=== PATIENT | female | born 1980 | race Caucasian/White ===

== ENCOUNTER 2024-04-24 14:11 | Emergency (ER) | payer MEDICAID, OTHER ==
[~2024-04-24] VITALS: Ht 162.6 cm; Wt 78.9 kg
[2024-04-24] MEDS ORDERED: TIRZEPATIDE (14:30)
[2024-04-24 14:44] LABS: BASOPHILS % (AUTO) 0.6 % (0.0-2.0); DIFFERENTIAL COMMENT 1; EOSINOPHILS % (AUTO) 0.3 % (0.0-7.0); HEMATOCRIT 39.7 % (31.2-41.9); HEMOGLOBIN 13.7 g/dL (10.9-14.3); LYMPHOCYTES % (AUTO) 17.8 % (20.5-51.5); MEAN CORPUSCULAR HEMOGLOBIN 30.2 uug (24.7-32.8); MEAN CORPUSCULAR HGB CONC 35 g/dL (32.3-35.6); MEAN CORPUSCULAR VOLUME 87.6 fL (75.5-95.3); MONOCYTES # (AUTO) 0.2 K/uL (0.1-1.30); MONOCYTES % (AUTO) 3.3 % (0.0-11.0); NEUTROPHILS # (AUTO) 4.2 K/uL (1.8-8.9); PLATELET COUNT (AUTO) 228 K/uL (179-408); RED BLOOD CELL COUNT(AUTO) 4.53 MIL/uL (3.63-4.92); RED CELL DISTRIBUTION WIDTH 12.6 % (12.3-17.7); WHITE BLOOD COUNT (AUTO) 5.4 K/uL (3.8-11.8)
[2024-04-24 14:45] LABS: *BILIRUBIN,URIN NEGATIVE (NEGATIVE); *BLOOD, URINE NEGATIVE (NEGATIVE); *CLARITY,URINE CLEAR (CLEAR); *COLOR,URINE YELLOW (YELLOW); *KETONES,URINE TRACE (NEGATIVE); *PROTEIN,URINE NEGATIVE (NEGATIVE); *UROBILINOGEN,URINE 0.2 E.U./dl (NORMAL); LEUKOCYTE ESTERASE ,URINE NEGATIVE (NEGATIVE); NITRITE, URINE NEGATIVE (NEGATIVE); PH,URINE 7.5 (5.0-8.0); UGLUCOSE NEGATIVE (NEGATIVE)
[2024-04-24 14:47] LABS: *URINE HCG, QUAL NEGATIVE (NEGATIVE); BACTERIA,URINE FEW /HPF (NONE SEEN); SQUAMOUS EPITHELIAL CELL,UR FEW /HPF (NONE SEEN); WBC,URINE 0-3 /HPF (0-3)
[2024-04-24] MEDS ORDERED: ONDANSETRON 4 MG/2 ML VIAL ONE (14:52)
[2024-04-24 14:55] LABS: CALCIUM 9.2 mg/dL (8.5-10.1); CREATININE 0.6 mg/dL (0.6-1.3); POTASSIUM 3.8 mmol/L (3.5-5.1)
[2024-04-24] MEDS: ONDANSETRON 4 MG/2 ML VIAL IV ONE (14:57)
[2024-04-24] MEDS: IV NORMAL SALINE 1000 ML BAG IV ONE ×2 (14:57→15:56)
[2024-04-24 15:01] LABS: ALBUMIN 4.4 g/dL (3.4-5.0); BILIRUBIN,DIRECT 0.2 mg/dL (0.0-0.2); BILIRUBIN,TOTAL 0.7 mg/dL (0.2-1.0); TOTAL PROTEIN, SERUM 8.1 g/dL (6.4-8.2)
[2024-04-24] MEDS ORDERED: MECL-159 PO (16:21)
[2024-04-24] MEDS ORDERED: ONDA4TAB5 PO (16:21)
[2024-04-24 16:51] VITALS: BP 119/76; O2SAT 100
== END 2024-04-24 16:52 | disposition home or self-care (01) ==
LOC: ER 14:11
DX: R42 Dizziness and giddiness (principal); R11.2 Nausea with vomiting, unspecified; R09.89 Other specified symptoms and signs involving the circulatory and respiratory systems; R06.00 Dyspnea, unspecified
CPT/HCPCS: 36415; 71045; 83690; 84703; 85025; A4606; A4663; J2405; J7040